=== PATIENT | female | born 1955 | race Hispanic/Latino ===

== ENCOUNTER → 2016-05-18 | Outpatient (REF) | payer MEDICAID, OTHER ==
[2016-05-18 11:01] LABS: MEAN CORPUSCULAR HGB CONC 32.9 g/dl (32.0-36.5); MEAN CORPUSCULAR VOLUME 94.5 fl (80.0-96.0); RED CELL DISTRIBUTION WIDTH 12.6 % (11.5-14.5); WHITE BLOOD COUNT 3.9 K/mm3 (4.0-10.0)
[2016-05-18 11:17] LABS: CALCIUM OXALATE CRYSTALS LARGE
[2016-05-18 11:30] LABS: ALBUMIN 3.3 GM/DL (3.2-5.2); ALBUMIN/GLOBULIN RATIO 1.06 (1.00-1.93); ALKALINE PHOSPHATASE 110 U/L (45-117); ALT/SGPT 25 U/L (12-78); ANION GAP 8 MEQ/L (8-16); AST/SGOT 22 U/L (15-37); BILIRUBIN,TOTAL 0.3 MG/DL (0.2-1.0); BLOOD UREA NITROGEN 10 MG/DL (7-18); CALCIUM LEVEL 8.4 MG/DL (8.8-10.2); CARBON DIOXIDE LEVEL 28 MEQ/L (21-32); CHLORIDE LEVEL 108 MEQ/L (98-107); CHOLESTEROL LEVEL 162 MG/DL (<200); CREATININE FOR GFR 0.52 MG/DL (0.55-1.02); FREE T4 1.26 NG/DL (0.76-1.46); GLOMERULAR FILTRATION RATE > 60.0 (>45); GLUCOSE, FASTING 168 MG/DL (80-110); POTASSIUM SERUM 4.2 MEQ/L (3.5-5.1); SODIUM LEVEL 144 MEQ/L (136-145); TOTAL PROTEIN 6.4 GM/DL (6.4-8.2); TRIGLYCERIDES LEVEL 102 MG/DL (<150)
== END | disposition home or self-care (01) ==
LOC: M SFHCLERA 08:18
PROVIDERS: ATTEND Family Medicine
DX: R80.9 Proteinuria, unspecified (principal); E08.65 Diabetes mellitus due to underlying condition with hyperglycemia; E08.610 Diabetes mellitus due to underlying condition with diabetic neuropathic arthropathy; G62.9 Polyneuropathy, unspecified

== ENCOUNTER → 2016-06-03 | Outpatient (REF) | payer OTHER, MEDICAID | LOC: M LAB REF 06-02 06:00 | PROVIDERS: ATTEND Family Medicine | DX: R80.8 Other proteinuria (principal) ==

== ENCOUNTER → 2016-06-07 | Outpatient (CLI) | payer MEDICAID, OTHER ==
--- NOTE | 2016-06-07 13:44 | REP ---
Urinary tract sonogram: History: Proteinuria. Comparison: No comparison study. Findings: Scanning at the level of the urinary bladder shows no abnormality. Pre void bladder volume is calculated at 476 ml. Bladder jovel are smooth. Incidental note is made of a 0.6 cm nonshadowing echogenic polyp on the nondependent wall of the gallbladder. Renal cortical echogenicity pattern is normal bilaterally and contours are smooth. There is no evidence of hydronephrosis, cyst, mass, or calculus in either kidney. The right kidney measures 11.0 x 4.9 x 4.2 cm. Left renal dimensions are 10.2 x 4.8 x 4.3 cm. Impression: Small polyp in the gallbladder wall noted incidentally, otherwise negative urinary tract sonography. Signed by Ethan Ag MD 06/07/2016 01:35 P
== END ==
LOC: M LRY 08:23
PROVIDERS: ATTEND Family Medicine
DX: R80.8 Other proteinuria (principal); K82.4 Cholesterolosis of gallbladder

== ENCOUNTER → 2016-08-24 | Outpatient (CLI) | payer OTHER ==
[~2016-08-24] MED LIST: E-Z-GAS II EFFERVESCENT PACKET (SODIUM BICARB./CITRIC ACID/SIMETHICONE) As Ordered ONE; E-Z-HD 98% w/w 340GM SUSP BTL As Ordered ONE; E-Z-PAQUE 96% w/w SUSP 176GM BTL As Ordered ONE
--- NOTE | 2016-08-25 09:11 | REP ---
Esophagram The procedure was performed under the direct supervision of Dr. Ag. The images were reviewed with Dr. Ag. A single view PA chest x-ray is submitted as a medical assistant ob gyn film. The superior mediastinal structures are midline. The heart size is within normal limits. The lungs are clear. Liquid barium and gas producing granules were given in the erect position as well as liquid barium in the prone oblique positions in order to perform a double contrast esophagram examination. The oral and pharyngeal stages of deglutition are unremarkable. Esophageal transport tertiary waves. There is no esophagitis, stricture or mucosal ring. There is a sliding type hiatal hernia present. Gastroesophageal reflux is not demonstrated on this examination. Impression: 1. Tertiary waves. 2. There is a sliding type hiatal hernia. One minute of fluoro time was utilized for this procedure. Reviewed by JUAN A Evans 08/24/2016 07:04 PSigned by Ethan Ag MD 08/25/2016 09:02 A
== END ==
LOC: M RAD 08:51
PROVIDERS: ATTEND Family Medicine
DX: R13.12 Dysphagia, oropharyngeal phase (principal); K44.9 Diaphragmatic hernia without obstruction or gangrene

== ENCOUNTER → 2016-09-23 | Outpatient (REF) | payer MEDICAID, OTHER ==
[2016-09-23 11:52] LABS: MEAN CORPUSCULAR HEMOGLOBIN 32.4 pg (27.0-33.0); MEAN CORPUSCULAR HGB CONC 33.8 g/dl (32.0-36.5); RED CELL DISTRIBUTION WIDTH 12.5 % (11.5-14.5); WHITE BLOOD COUNT 5.2 K/mm3 (4.0-10.0)
[2016-09-23 12:09] LABS: ANION GAP 5 MEQ/L (8-16); BLOOD UREA NITROGEN 17 MG/DL (7-18); CALCIUM LEVEL 8.8 MG/DL (8.8-10.2); CARBON DIOXIDE LEVEL 29 MEQ/L (21-32); CHLORIDE LEVEL 105 MEQ/L (98-107); CREATININE FOR GFR 0.64 MG/DL (0.55-1.02); GLOMERULAR FILTRATION RATE > 60.0 (>45); GLUCOSE, FASTING 155 MG/DL (80-110); POTASSIUM SERUM 4.4 MEQ/L (3.5-5.1); SODIUM LEVEL 139 MEQ/L (136-145)
== END ==
LOC: M SFHCLERA 09:16
PROVIDERS: ATTEND Family Medicine
DX: E11.40 Type 2 diabetes mellitus with diabetic neuropathy, unspecified (principal); R80.9 Proteinuria, unspecified

== ENCOUNTER → 2016-11-03 | Outpatient (REF) | payer MEDICAID, OTHER | LOC: M SFHCLERA 07:41 | PROVIDERS: ATTEND Family Medicine | DX: Z11.59 Encounter for screening for other viral diseases (principal) ==

== ENCOUNTER → 2017-03-31 | Outpatient (CLI) | payer OTHER | LOC: M RAD 12:38 | DX: Z12.31 Encounter for screening mammogram for malignant neoplasm of breast (principal) | CPT/HCPCS: G0202 ==

== ENCOUNTER → 2017-04-28 | Outpatient (CLI) | payer OTHER | LOC: M RAD 14:38 | DX: N63.21 Unspecified lump in the left breast, upper outer quadrant (principal) | CPT/HCPCS: 77065 ==

== ENCOUNTER → 2017-05-09 | Outpatient (REF) | payer MEDICAID, OTHER ==
[2017-05-09 11:56] LABS: ESTIMATED AVERAGE GLUCOSE 194 MG/DL (60-110); HEMOGLOBIN A1c 8.4 %
== END ==
LOC: M SFHCLERA 08:08
DX: E11.9 Type 2 diabetes mellitus without complications (principal)
CPT/HCPCS: 83036